=== PATIENT | female | born 1995 | race African-American/Black ===

== ENCOUNTER 2017-10-20 10:37 | Emergency (ER) | payer BC, OTHER ==
[~2017-10-20] VITALS: Ht 172.7 cm; Wt 69.8 kg
[~2017-10-20 10:37] MED LIST: IBUPROFEN 600600 M1 PO; NORCO 5-325 TA1 EACH PO; PROZAC20 MG PO; SEROQUEL 25 MG25 M1 PO; TRAZODONE HCL50 MG PO
[2017-10-20 11:56] LABS: HEMATOCRIT 41.8 % (37.0-47.0); HEMOGLOBIN 14.3 gm/dL (12.0-15.0); MCH 28.5 pg (26.0-34.0); MCHC 34.3 g/dL (28.0-37.0); MCV 83.2 fL (80.0-100.0); RBC 5.02 mil/uL (4.20-5.00); RDW 14.8 % (10.5-14.5); WBC 8.7 thou/uL (4.0-11.0)
[2017-10-20 12:05] LABS: URINE BLOOD NEGATIVE (Negative); URINE CLARITY CLEAR; URINE COLOR YELLOW; URINE GLUCOSE-RANDOM* NEGATIVE (Negative); URINE KETONES 2+ (Negative); URINE LEUKOCYTES-REFLEX 1+ (Negative); URINE NITRITE-REFLEX NEGATIVE (Negative); URINE PROTEIN (DIPSTICK) NEGATIVE (Negative)
[2017-10-20 12:05] LABS: CALCIUM 9.7 mg/dL (8.5-10.1)
[2017-10-20 12:07] LABS: ICTOTEST (BILI CONFIRMATORY) Negative (Negative); URINE BILIRUBIN NEGATIVE (Negative)
[2017-10-20 12:12] LABS: AMP/METHAMP Negative (Negative); BARBITURATES Negative (Negative); BENZODIAZEPINES Negative (Negative); COCAINE Negative (Negative); METHADONE Negative (Negative); OPIATES Negative (Negative); PCP Negative (Negative)
[2017-10-20 12:20] LABS: CASTS None Seen /LPF (None Seen); MUCUS >6 Heavy strn/LPF (None Seen); SQUAMOUS 4-10 Moderate /LPF (0-3); URINE WBC-REFLEX 0-5 Rare /HPF (0-5)
[2017-10-20 12:21] LABS: BACTERIA-REFLEX 1-9 Few /HPF (None Seen); CRYSTALS None Seen /LPF (None Seen); URINE RBC None Seen /HPF (0-2)
[2017-10-20 13:23] VITALS: BP 118/71
[2017-10-23 18:06] LABS: TRICYCLIC (TCA) CONFIRMATION Negative ng/mL (Cutoff=100)
== END 2017-10-20 13:24 | disposition left against medical advice (07) ==
LOC: ER 10:37
PROVIDERS: Emergency Medicine
DX: R45.4 Irritability and anger (principal); F41.9 Anxiety disorder, unspecified

== ENCOUNTER 2018-04-09 20:08 | Emergency (ER) | payer BC, OTHER ==
[~2018-04-09] VITALS: Ht 165.1 cm; Wt 56.7 kg
[2018-04-09] MEDS ORDERED: ATIVAN0.5 MG PO (21:36)
[2018-04-09 21:56] VITALS: BP 122/74
== END 2018-04-09 21:57 | disposition home or self-care (01) ==
LOC: ER 20:08
DX: F41.9 Anxiety disorder, unspecified (principal); F32.9 Major depressive disorder, single episode, unspecified

== ENCOUNTER 2019-01-01 06:00 | Emergency (ER) | payer BC, OTHER ==
[~2019-01-01] VITALS: Ht 175.3 cm; Wt 66.7 kg
[~2019-01-01 06:00] MED LIST changes: +ATIVAN0.5 MG PO
[2019-01-01] MEDS ORDERED: NAPROSYN500 MG PO (06:16)
[2019-01-01 06:31] VITALS: BP 121/71
== END 2019-01-01 06:31 | disposition home or self-care (01) ==
LOC: ER 06:00
DX: M65.261 Calcific tendinitis, right lower leg (principal); F41.9 Anxiety disorder, unspecified; F17.210 Nicotine dependence, cigarettes, uncomplicated

== ENCOUNTER 2019-04-05 16:33 | Emergency (ER) | payer BC, OTHER ==
[~2019-04-05] VITALS: Ht 172.7 cm; Wt 66.7 kg
[~2019-04-05 16:33] MED LIST changes: +NAPROSYN500 MG PO
[2019-04-05 16:59] LABS: URINE BILIRUBIN NEGATIVE (Negative); URINE BLOOD TRACE (Negative); URINE CLARITY CLEAR; URINE COLOR YELLOW; URINE GLUCOSE-RANDOM* NEGATIVE (Negative); URINE KETONES 2+ (Negative); URINE LEUKOCYTES-REFLEX NEGATIVE (Negative); URINE NITRITE-REFLEX NEGATIVE (Negative); URINE PROTEIN (DIPSTICK) NEGATIVE (Negative); URINE SPECIFIC GRAVITY >= 1.030 (1.005-1.035); URINE UROBILINOGEN 0.2 E.U./dl (0.2-1.0)
[2019-04-05 17:00] LABS: ABSOLUTE NEUTROPHILS 11.8 thou/uL (1.4-8.2); BASOPHILS 0.2 % (0.0-2.0); EOSINOPHILS 0.2 % (0.0-3.0); HEMATOCRIT 47.8 % (37.0-47.0); HEMOGLOBIN 15.9 gm/dL (12.0-15.0); LYMPHOCYTES 3.6 % (24.0-44.0); MCH 28.1 pg (26.0-34.0); MCHC 33.2 g/dL (28.0-37.0); MCV 84.7 fL (80.0-100.0); MONOCYTES 4.8 % (1.0-8.0); PLATELET COUNT 237 thou/uL (150-400); POLYS 91.2 % (36.0-66.0); RBC 5.64 mil/uL (4.20-5.00); RDW 14.3 % (10.5-14.5); WBC 12.9 thou/uL (4.0-11.0)
[2019-04-05 17:06] LABS: CALCIUM 10.4 mg/dL (8.5-10.1)
[2019-04-05 17:11] LABS: ALBUMIN 4.3 g/dL (3.4-5.0); TOTAL BILIRUBIN 1.2 mg/dL (<0.1-1.0); TOTAL PROTEIN 8.3 g/dL (6.4-8.2)
[2019-04-05] MEDS ORDERED: ZOFRAN ODT4 MG PO (17:18)
[2019-04-05] MEDS ORDERED: BENTYL 20 MG TA20 M1 PO (17:19)
[2019-04-05] MEDS ORDERED: PHENERGAN 25 MG25 M1 PO (17:19)
[2019-04-05] MEDS ORDERED: IMODIUM A-D2 MG PO (17:19)
[2019-04-05 17:46] VITALS: BP 122/76
== END 2019-04-05 17:48 | disposition home or self-care (01) ==
LOC: ER 16:33
PROVIDERS: Emergency Medicine
DX: A09 Infectious gastroenteritis and colitis, unspecified (principal); R11.2 Nausea with vomiting, unspecified; F41.9 Anxiety disorder, unspecified; F17.210 Nicotine dependence, cigarettes, uncomplicated

== ENCOUNTER 2019-05-21 15:11 | Emergency (ER) | payer BC, OTHER ==
[~2019-05-21] VITALS: Ht 172.7 cm; Wt 68.0 kg
[~2019-05-21 15:11] MED LIST changes: +BENTYL 20 MG TA20 M1 PO; +IMODIUM A-D2 MG PO; +PHENERGAN 25 MG25 M1 PO; +ZOFRAN ODT4 MG PO
[2019-05-21] MEDS ORDERED: KLONOPIN0.5 MG PO (15:22)
[2019-05-21] MEDS ORDERED: PENICILLIN V P500 MG PO (15:46)
[2019-05-21] MEDS ORDERED: NORCO 5-325 TA1 EAC1 PO (15:46)
[2019-05-21 16:02] VITALS: BP 131/78
== END 2019-05-21 16:03 | disposition home or self-care (01) ==
LOC: ER 15:11
DX: K08.89 Other specified disorders of teeth and supporting structures (principal); R51 Headache; F41.9 Anxiety disorder, unspecified; F17.210 Nicotine dependence, cigarettes, uncomplicated

== ENCOUNTER 2019-06-09 10:48 | Emergency (ER) | payer BC, OTHER ==
[~2019-06-09] VITALS: Ht 172.7 cm; Wt 70.3 kg
[~2019-06-09 10:48] MED LIST changes: +KLONOPIN0.5 MG PO; +NORCO 5-325 TA1 EAC1 PO; +PENICILLIN V P500 MG PO
[2019-06-09 10:55] VITALS: BP 122/77
[2019-06-09] MEDS ORDERED: MOBIC7.5 MG PO (11:23)
== END 2019-06-09 11:41 | disposition home or self-care (01) ==
LOC: ER 10:48
DX: S40.012A Contusion of left shoulder, initial encounter (principal); F41.9 Anxiety disorder, unspecified; F17.210 Nicotine dependence, cigarettes, uncomplicated; W22.8XXA Striking against or struck by other objects, initial encounter; Y93.89 Activity, other specified; Y92.89 Other specified places as the place of occurrence of the external cause; Y99.0 Civilian activity done for income or pay

== ENCOUNTER 2019-10-09 06:02 | Emergency (ER) | payer BC, OTHER ==
[~2019-10-09] VITALS: Ht 172.7 cm; Wt 65.3 kg
[~2019-10-09 06:02] MED LIST changes: +MOBIC7.5 MG PO
[2019-10-09 06:04] VITALS: BP 111/62
[2019-10-09] MEDS ORDERED: TRAMADOL 50 MG50 MG PO (06:51)
== END 2019-10-09 06:59 ==
LOC: ER 06:02
DX: S31.815A Open bite of right buttock, initial encounter (principal); S70.02XA Contusion of left hip, initial encounter; S60.812A Abrasion of left wrist, initial encounter; F41.9 Anxiety disorder, unspecified; F17.210 Nicotine dependence, cigarettes, uncomplicated; Z79.899 Other long term (current) drug therapy; W54.0XXA Bitten by dog, initial encounter; Y93.89 Activity, other specified; Y92.488 Other paved roadways as the place of occurrence of the external cause; Y99.0 Civilian activity done for income or pay

== ENCOUNTER 2021-02-15 10:50 | Emergency (ER) | payer BC ==
[~2021-02-15] VITALS: Ht 175.3 cm; Wt 66.7 kg
[~2021-02-15 10:50] MED LIST changes: +TRAMADOL 50 MG50 MG PO
[2021-02-15 11:32] LABS: URINE BILIRUBIN NEGATIVE (Negative); URINE BLOOD 3+ (Negative); URINE COLOR YELLOW; URINE GLUCOSE-RANDOM* NEGATIVE (Negative); URINE KETONES NEGATIVE (Negative); URINE PROTEIN (DIPSTICK) TRACE (Negative)
[2021-02-15 11:33] LABS: URINE CLARITY HAZY; URINE LEUKOCYTES-REFLEX 3+ (Negative); URINE NITRITE-REFLEX POSITIVE (Negative)
[2021-02-15 11:46] LABS: CASTS None Seen /LPF (None Seen); MUCUS >6 Heavy strn/LPF (None Seen); SQUAMOUS 4-10 Moderate /LPF (0-3)
[2021-02-15 11:48] LABS: BACTERIA-REFLEX >30 Many /HPF (None Seen); CRYSTALS None Seen /LPF (None Seen); URINE RBC 1-2 Rare /HPF (NONE SEEN); URINE WBC-REFLEX >25 Many /HPF (0-5)
[2021-02-15 12:07] LABS: ABSOLUTE NEUTROPHILS 7.7 thou/uL (1.4-8.2); BASOPHILS 0.2 % (0.0-2.0); EOSINOPHILS 0.1 % (0.0-3.0); HEMATOCRIT 38.7 % (37.0-47.0); HEMOGLOBIN 13.2 gm/dL (12.0-15.0); LYMPHOCYTES 11.8 % (24.0-44.0); MCH 28.8 pg (26.0-34.0); MCV 84.6 fL (80.0-100.0); MONOCYTES 10.8 % (1.0-8.0); PLATELET COUNT 177 thou/uL (150-400); POLYS 77.1 % (36.0-66.0); RBC 4.58 mil/uL (4.20-5.00)
[2021-02-15] MEDS ORDERED: CIPRO500 M1 PO (12:16)
[2021-02-15 12:19] LABS: CREATININE 1.2 mg/dL (0.6-1.0); POTASSIUM 3.4 mmol/L (3.5-5.1)
[2021-02-15 12:23] LABS: ALBUMIN 3.3 g/dL (3.4-5.0); TOTAL BILIRUBIN 0.8 mg/dL (0.2-1.0); TOTAL PROTEIN 7.4 g/dL (6.4-8.2)
[2021-02-15 14:10] VITALS: BP 103/56
== END 2021-02-15 14:10 | disposition home or self-care (01) ==
LOC: ER 10:50
PROVIDERS: Nurse Practitioner
DX: N12 Tubulo-interstitial nephritis, not specified as acute or chronic (principal); F41.9 Anxiety disorder, unspecified; F17.210 Nicotine dependence, cigarettes, uncomplicated; F12.90 Cannabis use, unspecified, uncomplicated